=== PATIENT | female | born 1955 | race Caucasian/White ===

== ENCOUNTER → 2016-06-09 | Outpatient (CLI) | payer BC | LOC: MC.RAD 12:52 | DX: Z12.31 Encounter for screening mammogram for malignant neoplasm of breast (principal); N63 Unspecified lump in breast ==

== ENCOUNTER → 2016-06-16 | Outpatient (CLI) | payer BC | LOC: MC.RAD 10:13 | DX: N63 Unspecified lump in breast (principal) ==

== ENCOUNTER → 2016-12-18 | Outpatient (CLI) | payer BC | LOC: MC.RAD 07:50 | DX: N63.10 Unspecified lump in the right breast, unspecified quadrant (principal) ==

== ENCOUNTER → 2017-10-30 | Outpatient (CLI) | payer BC | LOC: MC.RAD 11:33 | DX: Z12.31 Encounter for screening mammogram for malignant neoplasm of breast (principal) ==

== ENCOUNTER → 2019-03-17 | Outpatient (CLI) | payer BC | LOC: MC.RAD 01-30 16:15 | DX: Z12.31 Encounter for screening mammogram for malignant neoplasm of breast (principal) ==

== ENCOUNTER → 2021-02-01 | Outpatient (CLI) | payer BC | LOC: MC.RAD 10:43 | DX: Z12.31 Encounter for screening mammogram for malignant neoplasm of breast (principal) ==